=== PATIENT | male | born 1985 | race Caucasian/White ===

== ENCOUNTER 2021-03-17 13:38 | Inpatient (IN) | payer MEDICAID, SELFPAY ==
[2021-03-17] VITALS (8 sets, daily range): BP systolic 115–153; BP diastolic 73–119; PULSE 95–155; RESP 16–34; TEMP 36.6–38.8; O2SAT 90–98; BMI 37.8; BMI 35.3
--- NOTE | 2021-03-17 13:43 | W.ED.AMS ---
HPI - Altered Mental Status General: Chief Complaint: General Medical Stated Complaint: UNRESPONSIVE; HYPERGLYCEMIC Time Seen by Provider: 03/17/21 13:43 History of Present Illness: HPI narrative: Mr. Luna is a 35-year-old gentleman with unclear past medical history though denies history of diabetes who presents emergency department due to altered mental status. Per EMS report he was found sitting in the middle of the street confused. Upon them getting him up to get into the ambulance he became unresponsive. Ateum-fh-ecff glucose was elevated. Upon initial arrival patient is ill-appearing with significantly dry mucous membranes. Initially unresponsive to verbal stimuli however after painful stimuli the patient became more communicative though still appears altered. He reports that he overdid it and perhaps was walking to school he says but the exact circumstances are not clear. He denies traumatic injury. History is otherwise limited by mental status. Review of Systems Narrative: Unable to obtain due to altered mental status and acuity of illness. Physical Exam Narrative: EXAM NARRATIVE: GENERAL/CONSTITUTIONAL -ill appearing. Patient is tachycardic, tachypneic, and requiring supplemental oxygen Eyes - PERRL, no conjunctival injection ENMT - Atraumatic external nose and ears. Dry mucous membranes NECK - supple. trachea midline CARDIOVASCULAR -tachycardic rate and regular rhythm. RESPIRATORY -coarse to auscultation bilaterally. No retractions or accessory muscle use. ABDOMEN/GI -mild generalized tenderness., Nondistended. No tenderness to percussion or evidence of peritonitis MSK - Extremities without obvious deformity or tenderness to palpation SKIN -hot, Dry NEURO - alert and confused. Moves all extremities equally. PSYCH -impaired memory and cognition. Course ED course: - Patient was seen and evaluated by me at bedside - Patient placed on cardiac monitors, IV access obtained - Initial evaluation notable for ill appearance, patient is tachycardic, tachypneic, and requires supplemental oxygen. Blood glucose elevated. Given SIRS criteria and degree of illness empiric antibiotics and IV fluids given. - Labs notable for leukocytosis, thrombocytosis. Metabolic panel notable for hypokalemia, replenishment ordered. Patient is hyperglycemic though bicarb is normal and pH is 7.55. Anion gap suspected to be related to sepsis/dehydration as opposed to DKA. Blood ketones normal. Toxic ingestion labs negative. Initial lactate markedly elevated. - Imaging notable for no acute traumatic injury. Patient does have multifocal pneumonia, reported history 10 days ago of diagnosis of COVID-19. - Upon serial reexamination after treatment the patient was improved with normalization of lactate however the exact etiology of the patient's symptoms is still unclear -Hospitalist service contacted and agreed to admit the patient - Patient was admitted without further deterioration or significant events. Vital Signs: Vital signs: Vital Signs Temperature 98.7 F 03/19/21 08:00 Pulse Rate 80 03/19/21 08:41 Respiratory Rate 17 03/19/21 08:00 Blood Pressure 118/82 03/19/21 08:00 Pulse Oximetry 96 03/19/21 08:41 MDM - Altered Mental Status Lab Data: Labs: Lab Results 03/17/21 03/17/21 03/17/21 Range/Units 13:46 13:50 13:50 WBC 15.1 H (4.0-10.0) 10^3/ uL RBC 5.52 H (4.1-5.3) 10^6/u L Hgb 16.1 (11.7-16.6) g/dL Hct 45.0 (42.0-52.0) % MCV 81.5 (80-94) fl MCH 29.2 (28.0-34.0) pg MCHC 35.8 (30.0-36.0) g/dL RDW 13.0 (12.1-15.1) % Plt Count 800 H (130-400) 10^3/c mm MPV 10.7 H (7.4-10.4) fL Neut % (Auto) 73.6 % Lymph % (Auto) 15.8 % [place] % (Auto) 6.7 % Eos % (Auto) 0.5 % Baso % (Auto) 0.8 % Neut # (Auto) 11.09 H (1.8-7.7) 10^3/u L Lymph # (Auto) 2.4 (0.8-4.8) 10^3/u L [place] # (Auto) 1.0 H (0.2-0.9) 10^3/u L Eos # (Auto) 0.1 (0.0-0.8) 10^3/u L Baso # (Auto) 0.1 (0.0-0.1) 10^3/u L Nucleated RBC % (a uto) 0.3 % Nucleated RBCs # 0.1 /100WBC D-Dimer (0-0.59) ug/mIFE U Specimen Type Sample Site ABG pH (7.35-7.45) ABG pCO2 (35-45) mmHg ABG pO2 (80.0-100.0) mmH g ABG HCO3 (22-26) mmol/L ABG Base Excess (-2.0-2.0) mmol/ L Shailesh Test Hematocrit (42-52) % O2 Delivery Device Residential Real Estate Agent ID Sodium 135 L (136-145) mmol/L Potassium 3.2 L (3.5-5.1) mmol/L Chloride 83 L (98-107) mmol/L Carbon Dioxide 28 (22-29) mmol/L Anion Gap 27.2 H (5-19) BUN 8 (6-20) mg/dL Creatinine 0.9 (0.7-1.2) mg/dL GFR Calculation 95.5 (90-130) mL/min Glucose 565 H* (65-115) mg/dL POC Glucose 556 H* (70-110) mg/dL Estimat Average Gl ucose Hemoglobin A1c (4.0-6.0) % Calculated Osmolal ity 304 H (285-295) mOsm/k g Lactate (0.5-2.2) mmol/L Calcium 8.9 (8.5-10.5) mg/dL Phosphorus 3.0 (2.5-4.5) mg/dL Magnesium 2.0 (1.7-2.3) mg/dL Total Bilirubin 0.8 (0.15-1.2) mg/dL AST 59 H (0-40) U/L ALT 57 H (0-41) U/L Alkaline Phosphata se 88 (40-130) IU/L Creatine Kinase (39-308) U/L C-Reactive Protein 40.7 H (0.0-4.9) mg/L Total Protein 7.2 (6.6-8.7) g/dL Albumin 3.2 L (3.5-5.2) g/dL Globulin 4.0 (1.3-4.6) g/dL Procalcitonin 0.23 (0-0.5) ng/mL TSH 1.03 (0.27-4.20) uIU/ mL Urine Color (Yellow) Urine Appearance (CLEAR) Urine pH (5-7) Ur Specific Gravit y (1.005-1.030) Urine Protein (Negative) Urine Glucose (UA) (Normal) Urine Ketones (Negative) Urine Blood (Negative) Urine Nitrate (Negative) Urine Bilirubin (Negative) Urine Urobilinogen (Negative) mg/dL Ur Leukocyte Fiona ase (Negative) Urine RBC (0-2) /hpf Urine WBC (0-5) /hpf Ur Squamous Epith Cells (0-5) /hpf Amorphous Sediment Urine Bacteria (NONE) /hpf Urine Mucus /hpf Salicylates < 0.3 L (3-10) mg/dL Urine Opiates Scre en (Negative) ng/mL Acetaminophen < 5.0 L (10-30) ug/mL Ur Barbiturates Sc reen (Negative) ng/mL Ur Phencyclidine S crn (Negative) ng/mL Ur Amphetamines Sc reen (Negative) ng/mL U Benzodiazepines Scrn (Negative) ng/mL Urine Cocaine Scre en (Negative) ng/mL U Marijuana (THC) Screen (Negative) ng/mL Ethyl Alcohol < 10 (0-10) mg/dL Serum Ketones (Negative) 03/17/21 03/17/21 03/17/21 Range/Units 13:50 13:50 13:50 WBC (4.0-10.0) 10^3/ uL RBC (4.1-5.3) 10^6/u L Hgb (11.7-16.6) g/dL Hct (42.0-52.0) % MCV (80-94) fl MCH (28.0-34.0) pg MCHC (30.0-36.0) g/dL RDW (12.1-15.1) % Plt Count (130-400) 10^3/c mm MPV (7.4-10.4) fL Neut % (Auto) % Lymph % (Auto) % [place] % (Auto) % Eos % (Auto) % Baso % (Auto) % Neut # (Auto) (1.8-7.7) 10^3/u L Lymph # (Auto) (0.8-4.8) 10^3/u L [place] # (Auto) (0.2-0.9) 10^3/u L Eos # (Auto) (0.0-0.8) 10^3/u L Baso # (Auto) (0.0-0.1) 10^3/u L Nucleated RBC % (a uto) % Nucleated RBCs # /100WBC D-Dimer (0-0.59) ug/mIFE U Specimen Type Sample Site ABG pH (7.35-7.45) ABG pCO2 (35-45) mmHg ABG pO2 (80.0-100.0) mmH g ABG HCO3 (22-26) mmol/L ABG Base Excess (-2.0-2.0) mmol/ L Shailesh Test Hematocrit (42-52) % O2 Delivery Device Residential Real Estate Agent ID Sodium (136-145) mmol/L Potassium (3.5-5.1) mmol/L Chloride (98-107) mmol/L Carbon Dioxide (22-29) mmol/L Anion Gap (5-19) BUN (6-20) mg/dL Creatinine (0.7-1.2) mg/dL GFR Calculation (90-130) mL/min Glucose (65-115) mg/dL POC Glucose (70-110) mg/dL Estimat Average Gl ucose Hemoglobin A1c (4.0-6.0) % Calculated Osmolal ity (285-295) mOsm/k g Lactate 9.8 H* (0.5-2.2) mmol/L Calcium (8.5-10.5) mg/dL Phosphorus (2.5-4.5) mg/dL Magnesium (1.7-2.3) mg/dL Total Bilirubin (0.15-1.2) mg/dL AST (0-40) U/L ALT (0-41) U/L Alkaline Phosphata se (40-130) IU/L Creatine Kinase 108 (39-308) U/L C-Reactive Protein (0.0-4.9) mg/L Total Protein (6.6-8.7) g/dL Albumin (3.5-5.2) g/dL Globulin (1.3-4.6) g/dL Procalcitonin (0-0.5) ng/mL TSH (0.27-4.20) uIU/ mL Urine Color (Yellow) Urine Appearance (CLEAR) Urine pH (5-7) Ur Specific Gravit y (1.005-1.030) Urine Protein (Negative) Urine Glucose (UA) (Normal) Urine Ketones (Negative) Urine Blood (Negative) Urine Nitrate (Negative) Urine Bilirubin (Negative) Urine Urobilinogen (Negative) mg/dL Ur Leukocyte Fiona ase (Negative) Urine RBC (0-2) /hpf Urine WBC (0-5) /hpf Ur Squamous Epith Cells (0-5) /hpf Amorphous Sediment Urine Bacteria (NONE) /hpf Urine Mucus /hpf Salicylates (3-10) mg/dL Urine Opiates Scre en (Negative) ng/mL Acetaminophen (10-30) ug/mL Ur Barbiturates Sc reen (Negative) ng/mL Ur Phencyclidine S crn (Negative) ng/mL Ur Amphetamines Sc reen (Negative) ng/mL U Benzodiazepines Scrn (Negative) ng/mL Urine Cocaine Scre en (Negative) ng/mL U Marijuana (THC) Screen (Negative) ng/mL Ethyl Alcohol (0-10) mg/dL Serum Ketones Negative (Negative) 03/17/21 03/17/21 03/17/21 Range/Units 13:50 13:50 13:55 WBC (4.0-10.0) 10^3/ uL RBC (4.1-5.3) 10^6/u L Hgb (11.7-16.6) g/dL Hct (42.0-52.0) % MCV (80-94) fl MCH (28.0-34.0) pg MCHC (30.0-36.0) g/dL RDW (12.1-15.1) % Plt Count (130-400) 10^3/c mm MPV (7.4-10.4) fL Neut % (Auto) % Lymph % (Auto) % [place] % (Auto) % Eos % (Auto) % Baso % (Auto) % Neut # (Auto) (1.8-7.7) 10^3/u L Lymph # (Auto) (0.8-4.8) 10^3/u L [place] # (Auto) (0.2-0.9) 10^3/u L Eos # (Auto) (0.0-0.8) 10^3/u L Baso # (Auto) (0.0-0.1) 10^3/u L Nucleated RBC % (a uto) % Nucleated RBCs # /100WBC D-Dimer 1.80 H (0-0.59) ug/mIFE U Specimen Type Arterial Sample Site Radial, left ABG pH 7.55 H (7.35-7.45) ABG pCO2 38.5 (35-45) mmHg ABG pO2 123.0 H (80.0-100.0) mmH g ABG HCO3 33.6 H (22-26) mmol/L ABG Base Excess 10.3 H (-2.0-2.0) mmol/ L Shailesh Test Pos Hematocrit 47.5 (42-52) % O2 Delivery Device Nrb Residential Real Estate Agent ID Amh Sodium (136-145) mmol/L Potassium (3.5-5.1) mmol/L Chloride (98-107) mmol/L Carbon Dioxide (22-29) mmol/L Anion Gap (5-19) BUN (6-20) mg/dL Creatinine (0.7-1.2) mg/dL GFR Calculation (90-130) mL/min Glucose (65-115) mg/dL POC Glucose (70-110) mg/dL Estimat Average Gl ucose 252 Hemoglobin A1c 10.4 H (4.0-6.0) % Calculated Osmolal ity (285-295) mOsm/k g Lactate (0.5-2.2) mmol/L Calcium (8.5-10.5) mg/dL Phosphorus (2.5-4.5) mg/dL Magnesium (1.7-2.3) mg/dL Total Bilirubin (0.15-1.2) mg/dL AST (0-40) U/L ALT (0-41) U/L Alkaline Phosphata se (40-130) IU/L Creatine Kinase (39-308) U/L C-Reactive Protein (0.0-4.9) mg/L Total Protein (6.6-8.7) g/dL Albumin (3.5-5.2) g/dL Globulin (1.3-4.6) g/dL Procalcitonin (0-0.5) ng/mL TSH (0.27-4.20) uIU/ mL Urine Color (Yellow) Urine Appearance (CLEAR) Urine pH (5-7) Ur Specific Gravit y (1.005-1.030) Urine Protein (Negative) Urine Glucose (UA) (Normal) Urine Ketones (Negative) Urine Blood (Negative) Urine Nitrate (Negative) Urine Bilirubin (Negative) Urine Urobilinogen (Negative) mg/dL Ur Leukocyte Fiona ase (Negative) Urine RBC (0-2) /hpf Urine WBC (0-5) /hpf Ur Squamous Epith Cells (0-5) /hpf Amorphous Sediment Urine Bacteria (NONE) /hpf Urine Mucus /hpf Salicylates (3-10) mg/dL Urine Opiates Scre en (Negative) ng/mL Acetaminophen (10-30) ug/mL Ur Barbiturates Sc reen (Negative) ng/mL Ur Phencyclidine S crn (Negative) ng/mL Ur Amphetamines Sc reen (Negative) ng/mL U Benzodiazepines Scrn (Negative) ng/mL Urine Cocaine Scre en (Negative) ng/mL U Marijuana (THC) Screen (Negative) ng/mL Ethyl Alcohol (0-10) mg/dL Serum Ketones (Negative) 03/17/21 03/17/21 03/17/21 Range/Units 14:00 14:00 15:05 WBC (4.0-10.0) 10^3/ uL RBC (4.1-5.3) 10^6/u L Hgb (11.7-16.6) g/dL Hct (42.0-52.0) % MCV (80-94) fl MCH (28.0-34.0) pg MCHC (30.0-36.0) g/dL RDW (12.1-15.1) % Plt Count (130-400) 10^3/c mm MPV (7.4-10.4) fL Neut % (Auto) % Lymph % (Auto) % [place] % (Auto) % Eos % (Auto) % Baso % (Auto) % Neut # (Auto) (1.8-7.7) 10^3/u L Lymph # (Auto) (0.8-4.8) 10^3/u L [place] # (Auto) (0.2-0.9) 10^3/u L Eos # (Auto) (0.0-0.8) 10^3/u L Baso # (Auto) (0.0-0.1) 10^3/u L Nucleated RBC % (a uto) % Nucleated RBCs # /100WBC D-Dimer (0-0.59) ug/mIFE U Specimen Type Sample Site ABG pH (7.35-7.45) ABG pCO2 (35-45) mmHg ABG pO2 (80.0-100.0) mmH g ABG HCO3 (22-26) mmol/L ABG Base Excess (-2.0-2.0) mmol/ L Shailesh Test Hematocrit (42-52) % O2 Delivery Device Residential Real Estate Agent ID Sodium (136-145) mmol/L Potassium (3.5-5.1) mmol/L Chloride (98-107) mmol/L Carbon Dioxide (22-29) mmol/L Anion Gap (5-19) BUN (6-20) mg/dL Creatinine (0.7-1.2) mg/dL GFR Calculation (90-130) mL/min Glucose (65-115) mg/dL POC Glucose 451 H (70-110) mg/dL Estimat Average Gl ucose Hemoglobin A1c (4.0-6.0) % Calculated Osmolal ity (285-295) mOsm/k g Lactate (0.5-2.2) mmol/L Calcium (8.5-10.5) mg/dL Phosphorus (2.5-4.5) mg/dL Magnesium (1.7-2.3) mg/dL Total Bilirubin (0.15-1.2) mg/dL AST (0-40) U/L ALT (0-41) U/L Alkaline Phosphata se (40-130) IU/L Creatine Kinase (39-308) U/L C-Reactive Protein (0.0-4.9) mg/L Total Protein (6.6-8.7) g/dL Albumin (3.5-5.2) g/dL Globulin (1.3-4.6) g/dL Procalcitonin (0-0.5) ng/mL TSH (0.27-4.20) uIU/ mL Urine Color Yellow (Yellow) Urine Appearance Sl hazy (CLEAR) Urine pH 5 (5-7) Ur Specific Gravit y 1.010 (1.005-1.030) Urine Protein Trace (Negative) Urine Glucose (UA) 4+ H (Normal) Urine Ketones 1+ H (Negative) Urine Blood Neg (Negative) Urine Nitrate Negative (Negative) Urine Bilirubin Neg (Negative) Urine Urobilinogen 1 H (Negative) mg/dL Ur Leukocyte Fiona ase Negative (Negative) Urine RBC None (0-2) /hpf Urine WBC Rare (0-5) /hpf Ur Squamous Epith Cells Rare (0-5) /hpf Amorphous Sediment Not Reportable Urine Bacteria Trace (NONE) /hpf Urine Mucus 2+ /hpf Salicylates (3-10) mg/dL Urine Opiates Scre en Negative (Negative) ng/mL Acetaminophen (10-30) ug/mL Ur Barbiturates Sc reen Negative (Negative) ng/mL Ur Phencyclidine S crn Negative (Negative) ng/mL Ur Amphetamines Sc reen Negative (Negative) ng/mL U Benzodiazepines Scrn Negative (Negative) ng/mL Urine Cocaine Scre en Negative (Negative) ng/mL U Marijuana (THC) Screen Negative (Negative) ng/mL Ethyl Alcohol (0-10) mg/dL Serum Ketones (Negative) 03/17/21 03/17/21 Range/Units 16:51 16:53 WBC (4.0-10.0) 10^3/ uL RBC (4.1-5.3) 10^6/u L Hgb (11.7-16.6) g/dL Hct (42.0-52.0) % MCV (80-94) fl MCH (28.0-34.0) pg MCHC (30.0-36.0) g/dL RDW (12.1-15.1) % Plt Count (130-400) 10^3/c mm MPV (7.4-10.4) fL Neut % (Auto) % Lymph % (Auto) % [place] % (Auto) % Eos % (Auto) % Baso % (Auto) % Neut # (Auto) (1.8-7.7) 10^3/u L Lymph # (Auto) (0.8-4.8) 10^3/u L [place] # (Auto) (0.2-0.9) 10^3/u L Eos # (Auto) (0.0-0.8) 10^3/u L Baso # (Auto) (0.0-0.1) 10^3/u L Nucleated RBC % (a uto) % Nucleated RBCs # /100WBC D-Dimer (0-0.59) ug/mIFE U Specimen Type Sample Site ABG pH (7.35-7.45) ABG pCO2 (35-45) mmHg ABG pO2 (80.0-100.0) mmH g ABG HCO3 (22-26) mmol/L ABG Base Excess (-2.0-2.0) mmol/ L Shailesh Test Hematocrit (42-52) % O2 Delivery Device Residential Real Estate Agent ID Sodium (136-145) mmol/L Potassium (3.5-5.1) mmol/L Chloride (98-107) mmol/L Carbon Dioxide (22-29) mmol/L Anion Gap (5-19) BUN (6-20) mg/dL Creatinine (0.7-1.2) mg/dL GFR Calculation (90-130) mL/min Glucose (65-115) mg/dL POC Glucose 425 H (70-110) mg/dL Estimat Average Gl ucose Hemoglobin A1c (4.0-6.0) % Calculated Osmolal ity (285-295) mOsm/k g Lactate 1.8 (0.5-2.2) mmol/L Calcium (8.5-10.5) mg/dL Phosphorus (2.5-4.5) mg/dL Magnesium (1.7-2.3) mg/dL Total Bilirubin (0.15-1.2) mg/dL AST (0-40) U/L ALT (0-41) U/L Alkaline Phosphata se (40-130) IU/L Creatine Kinase (39-308) U/L C-Reactive Protein (0.0-4.9) mg/L Total Protein (6.6-8.7) g/dL Albumin (3.5-5.2) g/dL Globulin (1.3-4.6) g/dL Procalcitonin (0-0.5) ng/mL TSH (0.27-4.20) uIU/ mL Urine Color (Yellow) Urine Appearance (CLEAR) Urine pH (5-7) Ur Specific Gravit y (1.005-1.030) Urine Protein (Negative) Urine Glucose (UA) (Normal) Urine Ketones (Negative) Urine Blood (Negative) Urine Nitrate (Negative) Urine Bilirubin (Negative) Urine Urobilinogen (Negative) mg/dL Ur Leukocyte Fiona ase (Negative) Urine RBC (0-2) /hpf Urine WBC (0-5) /hpf Ur Squamous Epith Cells (0-5) /hpf Amorphous Sediment Urine Bacteria (NONE) /hpf Urine Mucus /hpf Salicylates (3-10) mg/dL Urine Opiates Scre en (Negative) ng/mL Acetaminophen (10-30) ug/mL Ur Barbiturates Sc reen (Negative) ng/mL Ur Phencyclidine S crn (Negative) ng/mL Ur Amphetamines Sc reen (Negative) ng/mL U Benzodiazepines Scrn (Negative) ng/mL Urine Cocaine Scre en (Negative) ng/mL U Marijuana (THC) Screen (Negative) ng/mL Ethyl Alcohol (0-10) mg/dL Serum Ketones (Negative) EKG Data^: EKG 1: Attestation: I personally reviewed and interpreted this EKG as follows: EKG interpretation date: 03/17/21 EKG interpretation time: 13:47 Prior EKG tracings: not available for review Interpretation: Twelve-lead EKG shows a regular sinus rhythm at a rate of 152. FL interval 141, QRS duration 83, QTc 523. Interpretation: Sinus tachycardia. Prolonged QTC. EKG 2: Attestation: I personally reviewed and interpreted this EKG as follows: EKG interpretation date: 03/17/21 EKG interpretation time: 15:47 Prior EKG tracings: available for review Interpretation: Twelve-lead EKG shows a regular sinus rhythm at a rate of 113. FL interval 156, QRS duration 97, QTc 504. Interpretation: Sinus tachycardia. Critical Care Time Critical Care Time: Critical Care Time: Yes Total Critical Care Time: 75 Attestation: This case had a high probability of a clinically significant, sudden, or life threatening deterioration of this patient's condition which required my full and direct attention, intervention and personal management. Discharge Plan Discharge Patient Disposition: Admitted As Inpatient Admit Provider: Ernie Mosqueda Coding Level of Care Code ED Biological Technician for Bandar Neal
--- NOTE | 2021-03-17 13:44 | ECG_ITS ---
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 Measurements Intervals [place] Rate: 152 P: 93 SD: 141 QRS: 225 QRSD: 83 T: 32 QT: 328 QTc: 523 Interpretive Statements SINUS TACHYCARDIA, MODERATE ST DEPRESSION [0.05+ mV ST DEPRESSION] No previous ECG available for comparison Electronically Signed On 03-18-2021 13:26:49 CDT by Yudy Franco M.D. [id number]
--- NOTE | 2021-03-17 13:44 | CTR_ITS ---
PROCEDURE INFORMATION: Exam: CT Head Without Contrast Exam date and time: 03/17/2021 1:44 PM Age: 35 years old Clinical indication: Altered mental status/memory loss; Additional info: AMS TECHNIQUE: Imaging protocol: Computed tomography of the head without contrast. Radiation optimization: All CT scans at this facility use at least one of these dose optimization techniques: automated exposure control; mA and/or kV adjustment per patient size (includes targeted exams where dose is matched to clinical indication); or iterative reconstruction. COMPARISON: No relevant prior studies available. RADIATION DOSE METRICS: Total DLP (mGy-cm): 917.45 FINDINGS: Brain: Normal. No hemorrhage. Unremarkable white matter. No mass effect. Cerebral ventricles: No ventriculomegaly. Paranasal sinuses: Visualized sinuses are unremarkable. No fluid levels. Mastoid air cells: Visualized mastoid air cells are well aerated. Bones/joints: Unremarkable. No acute fracture. Soft tissues: Unremarkable. CT/CT head wo con* [id number] IMPRESSION: No acute intracranial abnormality. Radiation Dose CTDIVOL = (mGy): DLP = 917.45 (mGy-cm)
--- NOTE | 2021-03-17 13:44 | XRR_ITS ---
PROCEDURE INFORMATION: Exam: XR Chest Exam date and time: 03/17/2021 1:44 PM Age: 35 years old Clinical indication: Other: AMS TECHNIQUE: Imaging protocol: XR of the chest. Views: 1 view. COMPARISON: No relevant prior studies available. FINDINGS: Lungs: Multifocal patchy bilateral pulmonary infiltrates. Pleural spaces: Unremarkable. No pleural effusion. No pneumothorax. Heart/Mediastinum: Unremarkable. No cardiomegaly. Bones/joints: Unremarkable. XR/XR chest 1V portable [id number] IMPRESSION: Multifocal patchy bilateral pulmonary infiltrates.
[2021-03-17] MEDS: sodium chloride 0.9% 1,000 ML 999 ML IV (13:51)
[2021-03-17 14:06] LABS: ABG PCO2 38.5 mmHg (35-45); ABG PH Result 7.55 (7.35-7.45); Arterial Blood Gas Hematocrit 47.5 % (42-52); Base Excess ABG 10.3 mmol/L (-2.0-2.0); Blood Gas Allen Test Pos; Blood Gas Operator Identificat AMH; Blood Gas Sample Site Radial, left; Blood Gas Sample Type Arterial; HCO3 ABG 33.6 mmol/L (22-26); Oxygen Device NRB
[2021-03-17 14:08] LABS: Basophils # 0.1 10^3/uL (0.0-0.1); Basophils % 0.8 %; Eosinophils # 0.1 10^3/uL (0.0-0.8); Eosinophils % 0.5 %; Hemoglobin 16.1 g/dL (11.7-16.6); Lymphocytes # 2.4 10^3/uL (0.8-4.8); Lymphocytes % 15.8 %; Mean Corpuscular HGB Conc 35.8 g/dL (30.0-36.0); Mean Corpuscular Hemoglobin 29.2 pg (28.0-34.0); Mean Corpuscular Volume 81.5 fl (80-94); Mean Platelet Volume 10.7 fL (7.4-10.4); Monocytes % 6.7 %; Neutrophils # 11.09 10^3/uL (1.8-7.7); Neutrophils % 73.6 %; Nucleated Red Blood Cells # 0.1 /100WBC; Nucleated Red Blood Cells % 0.3 %; Platelet Count 800 10^3/cmm (130-400); Red Blood Count 5.52 10^6/uL (4.1-5.3); White Blood Count 15.1 10^3/uL (4.0-10.0)
--- NOTE | 2021-03-17 14:18 | CTR_ITS ---
PROCEDURE INFORMATION: Exam: CTA Chest With Contrast Exam date and time: 03/17/2021 2:18 PM Age: 35 years old Clinical indication: Other: AMS; Shortness of breath; Additional info: AMS, sirs, unclear source TECHNIQUE: Imaging protocol: Computed tomographic angiography of the chest with contrast. 3D rendering (Not supervised by radiologist): MIP and/or 3D reconstructed images were created by the technologist. Radiation optimization: All CT scans at this facility use at least one of these dose optimization techniques: automated exposure control; mA and/or kV adjustment per patient size (includes targeted exams where dose is matched to clinical indication); or iterative reconstruction. Contrast material: VISI 320; Contrast volume: 95 ml; Contrast route: INTRAVENOUS (IV); COMPARISON: CR (CHEST, ) 03/17/2021 1:58 PM RADIATION DOSE METRICS: Total DLP (mGy-cm): 1605.8 FINDINGS: Pulmonary arteries: Normal. No pulmonary emboli. Aorta: Unremarkable. No aortic aneurysm. No aortic dissection. Lungs: Multifocal patchy bilateral pulmonary infiltrates primarily distributed peripherally. Pleural spaces: Unremarkable. No pneumothorax. No pleural effusion. Heart: Unremarkable. No cardiomegaly. No pericardial effusion. Lymph nodes: Unremarkable. No enlarged lymph nodes. Bones/joints: Unremarkable. No acute fracture. Soft tissues: Unremarkable. IMPRESSION: Bilateral pneumonia as described above.Commonly reported imaging features of COVID-19 pneumonia are present. Other processes such as influenza pneumonia and organizing pneumonia, as can be seen with drug toxicity and connective tissue disease, can cause a similar imaging pattern. (Reference: Atul) REFERENCES: Atul Rockwell, et al., Radiological Society of [place] Expert Consensus Statement on Reporting Chest CT Findings Related to COVID-19. Endorsed by the Society of Thoracic Radiology, the [place] [employer], and RSNA. Published October 19, 2019. PROCEDURE INFORMATION: Exam: CT Abdomen And Pelvis With Contrast Exam date and time: 03/17/2021 2:18 PM Age: 35 years old Clinical indication: Other: AMS; Shortness of breath; Additional info: AMS, sirs, unclear source TECHNIQUE: Imaging protocol: Computed tomography of the abdomen and pelvis with contrast. Radiation optimization: All CT scans at this facility use at least one of these dose optimization techniques: automated exposure control; mA and/or kV adjustment per patient size (includes targeted exams where dose is matched to clinical indication); or iterative reconstruction. Contrast material: VISI 320; Contrast volume: 95 ml; Contrast route: INTRAVENOUS (IV); COMPARISON: CR (CHEST, ) 03/17/2021 1:58 PM RADIATION DOSE METRICS: Total DLP (mGy-cm): 1605.8 FINDINGS: Lungs: Please see the CT scan of the thorax for description of the lung bases. Liver: Normal. No mass. Gallbladder and bile ducts: There are stones in the gallbladder. Pancreas: Normal. No ductal dilation. Spleen: The spleen is enlarged measuring 14.5 cm. Adrenal glands: Normal. No mass. Kidneys and ureters: Normal. No hydronephrosis. Stomach and bowel: Unremarkable. No obstruction. No mucosal thickening. Appendix: No evidence of appendicitis. Intraperitoneal space: Unremarkable. No free air. No significant fluid collection. Vasculature: Unremarkable. No abdominal aortic aneurysm. Lymph nodes: Unremarkable. No enlarged lymph nodes. Urinary bladder: There is a Espinoza catheter in the bladder. Bladder wall is collapsed about the Espinoza catheter and not well evaluated. Reproductive: Unremarkable as visualized. Bones/joints: Unremarkable. No acute fracture. Soft tissues: Unremarkable. CT/CT angio chest w abd pel w con IMPRESSION: 1. Cholelithiasis. 2. Splenomegaly. Radiation Dose CTDIVOL = (mGy): DLP = 1605.8~1605.8 (mGy-cm)
[2021-03-17] MEDS: iodixanol 320 mg/mL 100mL Btl IV (14:29)
[2021-03-17 14:37] LABS: Alanine Aminotransferase 57 U/L (0-41); Albumin Level 3.2 g/dL (3.5-5.2); Alkaline Phosphatase 88 IU/L (40-130); Anion Gap 27.2 (5-19); Aspartate Amino Transferase 59 U/L (0-40); Blood Urea Nitrogen 8 mg/dL (6-20); C Reactive Protein 40.7 mg/L (0.0-4.9); Calcium 8.9 mg/dL (8.5-10.5); Carbon Dioxide 28 mmol/L (22-29); Chloride 83 mmol/L (98-107); Glomerular Filtration Rate 95.5 mL/min (90-130); Osmolality Calculated 304 mOsm/kg (285-295); Potassium 3.2 mmol/L (3.5-5.1); Sodium 135 mmol/L (136-145); Thyroid Stimulating Hormone 1.03 uIU/mL (0.27-4.20); Total Bilirubin 0.8 mg/dL (0.15-1.2); Total Protein 7.2 g/dL (6.6-8.7)
[2021-03-17 14:38] LABS: Ketone (Acetest) Serum Negative (Negative)
[2021-03-17 14:42] LABS: Acetaminophen < 5.0 ug/mL (10-30); Alcohol Level < 10 mg/dL (0-10); Glucose 565 mg/dL (65-115); Lactate (Lactic Acid level) 9.8 mmol/L (0.5-2.2); Salicylate < 0.3 mg/dL (3-10)
--- NOTE | 2021-03-17 14:44 | ECG_ITS ---
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 Measurements Intervals [place] Rate: 113 P: 50 CT: 156 QRS: -14 QRSD: 97 T: 2 QT: 367 QTc: 504 Interpretive Statements SINUS TACHYCARDIA LOW QRS VOLTAGE IN PRECORDIAL LEADS [QRS DEFLECTION < 1.0 mV IN CHEST LEADS] Compared to ECG 03/17/2021 13:45:42 Low QRS voltage now present Atrial abnormality no longer present ST (T wave) deviation no longer present Electronically Signed On 03-18-2021 13:21:43 CDT by Yudy Franco M.D. [id number]
[2021-03-17] MEDS: SODIUM CHLORIDE 0.9% 1776 ML IV (14:46)
[2021-03-17 14:53] LABS: Add Urine Microscopic? YES; Bilirubin Urine Neg (Negative); Blood Urine Neg (Negative); Glucose Urine UA 4+ (Normal); Ketones Urine 1+ (Negative); Leukocyte Esterase Urine Negative (Negative); Nitrate Urine Negative (Negative); Protein Urine Trace (Negative); Urine Appearance SL Hazy (CLEAR); Urine Color Yellow (Yellow); Urobilinogen Urine 1 mg/dL (Negative); pH Urine 5 (5-7)
[2021-03-17] MEDS: piperacillin-tazobactam 4.5 GM in sodium chloride 0.9% (plus) 50 ML IV (14:59)
[2021-03-17 15:02] LABS: Amphetamines Screen Urine Negative (Negative); Barbiturates Screen Urine Negative (Negative); Benzodiazepines Screen Urine Negative (Negative); Cocaine Screen Urine Negative (Negative); Opiate Screen Urine Negative (Negative); PCP Screen Urine Negative (Negative); THC Screen Urine Negative (Negative)
[2021-03-17] MEDS: lidocaine 1% 5 ML in potassium chloride premix 100 ML 25 ML IV (15:02)
[2021-03-17 15:11] LABS: Glucose Point of Care 451 mg/dL (70-110)
[2021-03-17 15:25] LABS: Bacteria Urine TRACE /hpf; Mucus Urine 2+ /hpf; Squamous Epithelial Cell Urine RARE /hpf (0-5); WBC Urine RARE /hpf (0-5)
[2021-03-17 15:26] LABS: Add Urine Culture? No
[2021-03-17 15:31] LABS: Procalcitonin 0.23 ng/mL (0-0.5)
[2021-03-17 15:33] LABS: Creatine Phosphokinase 108 U/L (39-308)
[2021-03-17 16:55] LABS: Glucose Point of Care 425 mg/dL (70-110)
[2021-03-17 16:55] LABS: Glucose Point of Care 556 mg/dL (70-110)
[2021-03-17 17:31] LABS: Lactate (Lactic Acid level) 1.8 mmol/L (0.5-2.2)
--- NOTE | 2021-03-17 18:20 | P.HP_ITS ---
Providers/Chief Complaint Chief Complaint: UNRESPONSIVE; HYPERGLYCEMIC History of Present Illness Roman Luna is a 35 year old male with history of Covid infection presented to the ER with hyperglycemia, altered mental status fevers. Patient was noted to have elevated heart rate 143. Leukocytosis of 15.1 and elevated blood sugar. The patient received IV fluids. He had a CT scan of his chest abdomen pelvis. Concern for pneumonia given broad-spectrum antibiotics. His mental status improved. Currently on 6 L of oxygen. An ABG showed a pH of 7.55 with a HCO3 of 33.6 PCO2 38.5. Also noted to be hypokalemic at 3.2 potassium. Blood sugar was 565. Also noted to have elevated liver enzymes and high inflammatory markers. His urine tox screen was negative. He reports he was diagnosed with Covid about 2 weeks ago. He is a poor historian and is currently oriented to place and person Review of Systems General: Reports: 10 or more systems reviewed and unremarkable except in HPI and below Const: Reports: fever(s) and body aches Eyes: Denies: change in vision ENMT: Denies: throat pain Card: Denies: chest pain or palpitations Resp: Reports: dyspnea GI: Denies: abdominal pain, nausea or vomiting : Denies: flank pain or difficulty urinating Musc: Denies: neck pain or back pain Skin/Breast: Denies: rash or pruritus Neuro: Denies: headache(s) or numbness in extremities Medications/Allergies Home Medications Medication Instructions Recorded Confirmed Last Taken Type Unable to Assess 03/17/21 03/17/21 Unknown History Allergies Allergy/AdvReac Type Severity Reaction Status Date / Time Unable to Assess Allergy Unverified 03/17/21 13:50 Vitals/I&O/Wt Last Vital Signs Temp 98.6 F 03/17/21 15:03 Pulse 120 H 03/17/21 15:03 Resp 34 H 03/17/21 15:03 BP 153/119 03/17/21 15:03 Pulse Ox 94 03/17/21 15:03 03/17/21 03/17/21 03/17/21 06:59 14:59 22:59 Intake Total 1000 / 1000 1826 / 2826 Balance 1000 / 1000 1826 / 2826 Weight last 48 hrs Weight 220 lb Physical Exam Const: ORIENTATION/CONSCIOUSNESS: Yes awake HENMT: COMMON NORMALS: normocephalic and atraumatic Eye: COMMON NORMALS: EOMs intact bilaterally Resp: EFFORT & INSPECTION: Yes tachypneic AUSCULTATION: rhonchi Cardio: RATE: tachycardic GI: COMMON NORMALS: Soft to palpation and non-tender Extremity: COMMON NORMALS: normal to inspection Neuro: COMMON NORMALS: moves all extremities OTHER: Oriented to person and place Urinary Catheter Management^: Espinoza: Cath Placed During This Visit: yes Urinary Catheter Date of Insertion: 03/17/21 Urinary Catheter Time of Insertion: 14:00 Data : 03/17/21 13:50 03/17/21 13:50 Micro: Microbiology 03/17/21 13:50 Blood Culture - Preliminary Blood SPECIMEN COLLECTED CT chest IMPRESSION: Bilateral pneumonia as described above.Commonly reported imaging features of COVID-19 pneumonia are present. Other processes such as influenza pneumonia and organizing pneumonia, as can be seen with drug toxicity and connective tissue disease, can cause a similar imaging pattern. (Reference: Atul) CT abdomen pelvis IMPRESSION: 1. Cholelithiasis. 2. Splenomegaly. CT head IMPRESSION: No acute intracranial abnormality. A&P Assessment and plan (1) Pneumonia: Continue broad-spectrum antibiotics including vancomycin and Zosyn D-dimer is pending. Will order a CTA chest if is elevated Status: Acute (2) Hyperglycemia: Denies previous diagnosis diabetes will monitor fingerstick blood sugars with sliding scale insulin continue IV fluids check A1c Status: Acute (3) Acute delirium: Etiology unclear noted to be hyperglycemic dehydrated with possible infec tion mental status improved Add TSH, random cortisol CT head negative Status: Acute (4) Thrombocytosis: Concern for dehydration check a.m. labs Status: Acute (5) Transaminitis: Will trend consider further work-up including lipid profile and hepatitis panel with iron studies Status: Acute (6) Hypokalemia: Replace and recheck Add magnesium level Status: Acute Attestations Medical Necessity Statement*: Roman Street Jeremy's hospital stay will require greater than 2 midnights for pneumonia Coding Level of Care Code Acute Starting Sheet Tank Operator for g Fwd Exam Detailed Diagnoses Pneumonia J18.9 Hyperglycemia R73.9 Acute delirium R41.0 Thrombocytosis D47.3 Transaminitis R74.01 Hypokalemia E87.6
[2021-03-17 19:18] LABS: Estmated Average Glucose 252; Hemoglobin A1C 10.4 % (4.0-6.0)
[2021-03-17 20:34] LABS: Cortisol Random 21.04 ug/dL (2.47-19.5)
--- NOTE | 2021-03-17 21:17 | PC.NURSE ---
attempted to call report and placed on hold for extended time wihtout anyone answering line. will reattempt to call report
[2021-03-17 22:53] LABS: Glucose Point of Care 391 mg/dL (70-110)
--- NOTE | 2021-03-17 23:11 | PC.PHAR ---
Vancomycin is dosed at 1500mg IVPB every 12 hours to produce a predicted trough level of 13.81 (population based pharmacokinetic analysis). A trough level has been ordered from the lab to be obtained before th fourth dose to confirm and adjust if needed.
[2021-03-17] MEDS: piperacillin-tazobactam 3.375 GM in sodium chloride 0.9% (plus) 50 ML IV (23:47)
[2021-03-17] MEDS: lactated ringers 1,000 ML 100 ML IV (23:50)
[2021-03-17] MEDS: enoxaparin 40 mg/0.4 mL Syringe SUBCUT (23:52)
[2021-03-18] VITALS (8 sets, daily range): BP systolic 95–132; BP diastolic 57–89; PULSE 85–93; RESP 15–19; TEMP 36.6–37.1; O2SAT 92–98
[2021-03-18] MEDS: vancomycin 1,500 MG/300 ML PIGGYBACK 150 MG IV (05:48)
[2021-03-18 06:14] LABS: Glucose Point of Care 234 mg/dL (70-110)
[2021-03-18 08:01] LABS: SARS Covid-2 Antigen Negative (Negative)
[2021-03-18] MEDS: piperacillin-tazobactam 3.375 GM in sodium chloride 0.9% (plus) 50 ML IV (08:01)
[2021-03-18] MEDS: lactated ringers 1,000 ML 100 ML IV ×2 (08:14→18:48)
[2021-03-18 08:17] LABS: Basophils % 0.4 %; Eosinophils # 0.2 10^3/uL (0.0-0.8); Eosinophils % 1.7 %; Hematocrit 38.2 % (42.0-52.0); Hemoglobin 13.2 g/dL (11.7-16.6); Lymphocytes # 2.7 10^3/uL (0.8-4.8); Lymphocytes % 26.1 %; Mean Corpuscular HGB Conc 34.6 g/dL (30.0-36.0); Mean Corpuscular Hemoglobin 29.1 pg (28.0-34.0); Mean Corpuscular Volume 84.3 fl (80-94); Mean Platelet Volume 10.2 fL (7.4-10.4); Monocytes # 0.7 10^3/uL (0.2-0.9); Monocytes % 6.7 %; Neutrophils % 64.1 %; Nucleated Red Blood Cells % 0 %; Platelet Count 419 10^3/cmm (130-400); Red Blood Count 4.53 10^6/uL (4.1-5.3); Red Cell Distribution Width 13.6 % (12.1-15.1); White Blood Count 10.5 10^3/uL (4.0-10.0)
[2021-03-18 08:44] LABS: Alanine Aminotransferase 35 U/L (0-41); Albumin Level 2.6 g/dL (3.5-5.2); Alkaline Phosphatase 58 IU/L (40-130); Anion Gap 11.1 (5-19); Aspartate Amino Transferase 27 U/L (0-40); Blood Urea Nitrogen 5 mg/dL (6-20); Calcium 7.7 mg/dL (8.5-10.5); Carbon Dioxide 36 mmol/L (22-29); Chloride 92 mmol/L (98-107); Globulin 2.9 g/dL (1.3-4.6); Glomerular Filtration Rate 188.1 mL/min (90-130); Glucose 216 mg/dL (65-115); Osmolality Calculated 286 mOsm/kg (285-295); Potassium 3.1 mmol/L (3.5-5.1); Sodium 136 mmol/L (136-145); Total Bilirubin 0.6 mg/dL (0.15-1.2); Total Protein 5.5 g/dL (6.6-8.7)
[2021-03-18] MEDS: insulin glargine 100 units/1 mL 20 UNIT SUBCUT ×2 (11:31→22:32)
[2021-03-18 11:34] LABS: Glucose Point of Care 347 mg/dL (70-110)
--- NOTE | 2021-03-18 15:01 | P.PN_ITS ---
Subjective Subjective: Interval history: Patient examined today, no overnight events, added Lantus 20 units, Covid PCR sent today Discontinued antibiotic Patient was on room air when I examined him Vitals/I&O/Wt Last Vital Signs Temp 98.2 F 03/18/21 11:32 Pulse 89 03/18/21 11:32 Resp 19 H 03/18/21 11:32 BP 95/62 03/18/21 11:32 Pulse Ox 95 03/18/21 11:32 03/18/21 03/18/21 03/18/21 06:59 14:59 22:59 Intake Total 770 / 4096 1535 / 1535 Output Total 500 / 500 Balance 270 / 3596 1535 / 1535 Weight last 48 hrs Weight 93.44 kg Weight 99.79 kg Physical Exam Narrative: EXAM NARRATIVE: Fatigued and lethargic staying in his bed EOMI, PERRLA No neurological deficit Mild cognitive impairment No signs of meningitis S1, S2 Morbid obese Soft abdomen Lower extremity no edema Urinary Catheter Management^: Espinoza: Cath Placed During This Visit: yes Reason for Continuing Indwelling Catheter: Other Urinary Catheter Date of Insertion: 03/17/21 Urinary Catheter Time of Insertion: 14:00 Data : 03/18/21 07:58 03/18/21 07:58 Micro: Microbiology 03/17/21 13:50 Blood Culture - Preliminary Blood NEGATIVE TO DATE A&P Assessment and plan (1) Pneumonia: Status: Acute (2) Hypokalemia: Status: Acute (3) Transaminitis: Status: Acute (4) Thrombocytosis: Status: Acute (5) Acute delirium: Status: Acute (6) Hyperglycemia: Status: Acute (7) Acute respiratory failure with hypoxia: Status: Acute Additional A&P Information Acute hypoxia Rule out COVID-19, sent PCR today CTA chest requested to rule out PE Currently doing well on 3 to nasal cannula Discontinued antibiotics Newly diagnosed type 2 diabetes Hemoglobin A1c 10.4 He will need outpatient work-up to rule out underlying hematological disorder, abnormal transaminases, type 2 diabetes, thrombocytosis, and encephalopathy, hemochromatosis needs to be ruled out Diabetic education Continue LR at 75 mL/h due to hyperglycemia Hypokalemia secondary to use of insulin: Repleted Thrombocytosis with splenomegaly I do believe this was secondary to hemoconcentration which has improved platelet count today 419 will need outpatient follow-up I do believe there is underlying component of Re[place] which needs to be followed up outpatient We will check ammonia level Abnormal transaminases, improved CT abdomen pelvis revealed splenomegaly with cholelithiasis Delirium: Improved TSH normal Likely related to hyperglycemia Full code Consistent carb diet DVT prophylaxis Lovenox Attestations Medical Necessity Statement*: Continue medical management awaiting PCR Covid Time Spent in Patient Care: 16 - 35 minutes Coding Level of Care Code Acute Therapeutic Consultant for Chg Fwd Diagnoses Pneumonia J18.9 Hypokalemia E87.6 Transaminitis R74.01 Thrombocytosis D47.3 Acute delirium R41.0 Hyperglycemia R73.9 Acute respiratory failure with hypoxia J96.01
--- NOTE | 2021-03-18 15:08 | CTR_ITS ---
PROCEDURE INFORMATION: Exam: CTA Chest With Contrast Exam date and time: 03/18/2021 3:08 PM Age: 35 years old Clinical indication: Shortness of breath; Additional info: Hypoxia, high d-dimer TECHNIQUE: Imaging protocol: Computed tomographic angiography of the chest with contrast. 3D rendering (Not supervised by radiologist): MIP and/or 3D reconstructed images were created by the technologist. Radiation optimization: All CT scans at this facility use at least one of these dose optimization techniques: automated exposure control; mA and/or kV adjustment per patient size (includes targeted exams where dose is matched to clinical indication); or iterative reconstruction. Contrast material: OMNI 350; Contrast volume: 67 ml; Contrast route: INTRAVENOUS (IV); COMPARISON: CT angio chest w abd pel w con 03/17/2021 2:26 PM RADIATION DOSE METRICS: Total DLP (mGy-cm): 483.29 FINDINGS: Pulmonary arteries: Normal. No pulmonary emboli. Aorta: Unremarkable. No aortic aneurysm. No aortic dissection. Lungs: Patchy irregular ground-glass lesions widely distributed in both lungs which have increased to a mild degree since the comparison imaging. Pleural spaces: Unremarkable. No pneumothorax. No pleural effusion. Heart: Unremarkable. No cardiomegaly. No pericardial effusion. Lymph nodes: Unremarkable. No enlarged lymph nodes. Bones/joints: Unremarkable. No acute fracture. Soft tissues: Unremarkable. CT/CT angio chest PE protcl [id number] IMPRESSION: 1. Negative for pulmonary embolism. 2. Mild worsening of widespread airspace disease. 3. Commonly reported imaging features of COVID-19 pneumonia are present. Other processes such as influenza pneumonia and organizing pneumonia, as can be seen with drug toxicity and connective tissue disease, can cause a similar imaging pattern. (Reference: Atul) REFERENCES: Atul Rockwell et al., Radiological Society of [place] Expert Consensus Statement on Reporting Chest CT Findings Related to COVID-19. Endorsed by the Society of Thoracic Radiology, the [place] [employer], and RSNA. Published October 19, 2019. Radiation Dose CTDIVOL = (mGy): DLP = 483.29 (mGy-cm)
[2021-03-18 15:56] LABS: Glucose Point of Care 358 mg/dL (70-110)
[2021-03-18 16:05] LABS: Iron 51 ug/dL (59-158); Percent Saturation 23.7 % (20-50); Total Iron Binding Capacity 215 mcg/dl; Unsaturated Iron Binding 164 ug/dL (112-347)
[2021-03-18] MEDS: potassium chloride ER 20 mEq Tablet 40 MEQ PO (16:13)
[2021-03-18 17:26] LABS: Ammonia 25 umol/L (16-60)
[2021-03-18] MEDS: iohexol 350 mg/mL 100 mL Btl IV (18:34)
[2021-03-18] MEDS: enoxaparin 40 mg/0.4 mL Syringe SUBCUT (22:31)
[2021-03-18 22:37] LABS: Glucose Point of Care 288 mg/dL (70-110)
[2021-03-19 04:02] VITALS: BP 124/79; PULSE 89; RESP 15; TEMP 37.2; O2SAT 96
[2021-03-19] MEDS: lactated ringers 1,000 ML 75 ML IV ×2 (04:52→19:57)
--- NOTE | 2021-03-19 05:43 | PC.NURSE ---
Shift Note Frequent safety and comfort rounds continue. Orders and/or nursing care completed as indicated. Patient monitored for response to intervention and treatment(s). Education provided includes importance of checking and monitoring blood sugars and maintaining a healthy diet. Patient verbalized understanding. patient was restless most of the night and was awake watching television. Patient is currently resting comfortably in bed. Will continue to monitor.
[2021-03-19 06:50] LABS: Glucose Point of Care 180 mg/dL (70-110)
[2021-03-19 07:11] LABS: Basophils % 0.4 %; Eosinophils # 0.2 10^3/uL (0.0-0.8); Hematocrit 34.2 % (42.0-52.0); Hemoglobin 11.7 g/dL (11.7-16.6); Lymphocytes # 2.5 10^3/uL (0.8-4.8); Lymphocytes % 33.6 %; Mean Corpuscular HGB Conc 34.2 g/dL (30.0-36.0); Mean Corpuscular Hemoglobin 29.1 pg (28.0-34.0); Mean Corpuscular Volume 85.1 fl (80-94); Mean Platelet Volume 10.1 fL (7.4-10.4); Monocytes # 0.5 10^3/uL (0.2-0.9); Monocytes % 6.3 %; Neutrophils # 4.18 10^3/uL (1.8-7.7); Neutrophils % 56.7 %; Nucleated Red Blood Cells % 0 %; Platelet Count 366 10^3/cmm (130-400); Red Blood Count 4.02 10^6/uL (4.1-5.3); Red Cell Distribution Width 13.4 % (12.1-15.1); White Blood Count 7.4 10^3/uL (4.0-10.0)
[2021-03-19 07:29] LABS: Alanine Aminotransferase 26 U/L (0-41); Albumin Level 2.3 g/dL (3.5-5.2); Alkaline Phosphatase 50 IU/L (40-130); Blood Urea Nitrogen 4 mg/dL (6-20); Calcium 7.8 mg/dL (8.5-10.5); Carbon Dioxide 30 mmol/L (22-29); Chloride 98 mmol/L (98-107); Glomerular Filtration Rate 541.7 mL/min (90-130); Glucose 129 mg/dL (65-115); Osmolality Calculated 285 mOsm/kg (285-295); Sodium 138 mmol/L (136-145); Total Bilirubin 0.4 mg/dL (0.15-1.2); Total Protein 4.3 g/dL (6.6-8.7)
[2021-03-19 07:34] LABS: Anion Gap 13.6 (5-19); Aspartate Amino Transferase 22 U/L (0-40); Potassium 3.6 mmol/L (3.5-5.1)
[2021-03-19 08:00] VITALS: BP 118/82; PULSE 80; RESP 17; TEMP 37.1; O2SAT 94
[2021-03-19 08:41] VITALS: PULSE 80; O2SAT 96
[2021-03-19] MEDS: potassium chloride ER 20 mEq Tablet 40 MEQ PO (09:04)
[2021-03-19 11:49] LABS: Glucose Point of Care 273 mg/dL (70-110)
[2021-03-19 12:00] VITALS: BP 129/69; PULSE 98; RESP 16; TEMP 36.7; O2SAT 99
--- NOTE | 2021-03-19 14:44 | P.PN_ITS ---
Subjective Subjective: Interval history: Patient wanted to go home today however Covid PCR is pending, Vitals/I&O/Wt Last Vital Signs Temp 98.0 F 03/19/21 12:00 Pulse 98 03/19/21 12:00 Resp 16 03/19/21 12:00 BP 129/69 03/19/21 12:00 Pulse Ox 99 03/19/21 12:00 03/18/21 03/19/21 03/19/21 22:59 06:59 14:59 Intake Total 1000 / 2535 1240 / 3775 240 / 240 Output Total 800 / 800 700 / 1500 600 / 600 Balance 200 / 1735 540 / 2275 -360 / -360 Weight last 48 hrs Weight 93.44 kg Physical Exam Narrative: EXAM NARRATIVE: Patient was sitting in his bed watching television S1, S2 Morbidly obese Bilateral breath sounds no adventitious rhonchi or crackles There was strong smell of urine in the room No neurological deficit EOMI, PERRLA Patient does show signs of cognitive impairment Urinary Catheter Management^: Espinoza: Cath Placed During This Visit: yes, but has since been removed by the nurse Reason for Continuing Indwelling Catheter: Not indwelling catheter Urinary Catheter Date of Insertion: 03/17/21 Urinary Catheter Time of Insertion: 14:00 Date Urinary Catheter Removed: 03/18/21 Time Urinary Catheter Discontinued: 16:22 Data : 03/19/21 06:57 03/19/21 06:57 Micro: Microbiology 03/17/21 13:50 Blood Culture - Preliminary Blood NEGATIVE TO DATE A&P Assessment and plan (1) Acute respiratory failure with hypoxia: Status: Acute (2) Hypokalemia: Status: Acute (3) Transaminitis: Status: Acute (4) Thrombocytosis: Status: Acute (5) Acute delirium: Status: Acute (6) Hyperglycemia: Status: Acute (7) Pneumonia: Status: Acute Additional A&P Information Acute hypoxia Rule out COVID-19 pneumonia This morning I turned off his oxygen to see if he would maintain his O2 saturation, no decline seen during my evaluation continue to monitor if he would require nasal cannula CTA ruled out PE Hypokalemia: Repleted Newly diagnosed type 2 diabetes Patient is on moderate sliding scale with Lantus 20 units daily, I would increase Lantus dose to 25 units I would continue his fluid because of consistent hyperglycemia I would use high-dose sliding scale Thrombocytosis most likely secondary to dehydration improved after fluid resuscitation Transaminitis improved Considering type 2 diabetes and splenomegaly would recommend outpatient hematology follow-up Encephalopathy: Resolved however I do suspect underlying cognitive impairment Ammonia level normal Consistent carb diet Full code DVT prophylaxis Lovenox Attestations Medical Necessity Statement*: Continue care Covid PCR to be ruled out will need home O2 evaluation before discharge, community educator Time Spent in Patient Care: less than 15 minutes Coding Level of Care Code Acute Public Health Assistant for Chg Fwd Diagnoses Acute respiratory failure with hypoxia J96.01 Hypokalemia E87.6 Transaminitis R74.01 Thrombocytosis D47.3 Acute delirium R41.0 Hyperglycemia R73.9 Pneumonia J18.9
[2021-03-19 16:00] VITALS: BP 125/89; PULSE 80; RESP 17; TEMP 36.9; O2SAT 92
[2021-03-19 16:32] LABS: Osmolality Serum 309 mOsm/kg (278-305)
[2021-03-19 18:10] LABS: Glucose Point of Care 274 mg/dL (70-110)
[2021-03-19 20:00] VITALS: BP 137/92; PULSE 92; RESP 20; TEMP 37.2; O2SAT 89
[2021-03-19 21:57] LABS: Glucose Point of Care 267 mg/dL (70-110)
[2021-03-19] MEDS: insulin glargine 100 units/1 mL 25 UNIT SUBCUT (21:58)
[2021-03-19] MEDS: enoxaparin 40 mg/0.4 mL Syringe SUBCUT (21:58)
[2021-03-20] VITALS (8 sets, daily range): BP systolic 119–136; BP diastolic 80–91; PULSE 80–95; RESP 16–19; TEMP 36.5–37.3; O2SAT 90–94
[2021-03-20 03:25] LABS: Basophils # 0.1 10^3/uL (0.0-0.1); Basophils % 0.7 %; Eosinophils # 0.2 10^3/uL (0.0-0.8); Eosinophils % 2.1 %; Hematocrit 41.5 % (42.0-52.0); Hemoglobin 13.9 g/dL (11.7-16.6); Lymphocytes % 35.1 %; Mean Corpuscular HGB Conc 33.5 g/dL (30.0-36.0); Mean Corpuscular Hemoglobin 28.5 pg (28.0-34.0); Mean Corpuscular Volume 85.2 fl (80-94); Mean Platelet Volume 10.2 fL (7.4-10.4); Monocytes # 0.6 10^3/uL (0.2-0.9); Monocytes % 7.4 %; Neutrophils # 4.56 10^3/uL (1.8-7.7); Nucleated Red Blood Cells % 0 %; Platelet Count 463 10^3/cmm (130-400); Red Blood Count 4.87 10^6/uL (4.1-5.3); Red Cell Distribution Width 13.5 % (12.1-15.1); White Blood Count 8.6 10^3/uL (4.0-10.0)
[2021-03-20 03:48] LABS: Alanine Aminotransferase 33 U/L (0-41); Albumin Level 2.8 g/dL (3.5-5.2); Alkaline Phosphatase 65 IU/L (40-130); Anion Gap 14.4 (5-19); Aspartate Amino Transferase 25 U/L (0-40); Blood Urea Nitrogen 5 mg/dL (6-20); C Reactive Protein 29.3 mg/L (0.0-4.9); Calcium 8.3 mg/dL (8.5-10.5); Carbon Dioxide 33 mmol/L (22-29); Chloride 100 mmol/L (98-107); Globulin 3.5 g/dL (1.3-4.6); Glomerular Filtration Rate 339.2 mL/min (90-130); Glucose 101 mg/dL (65-115); Lactate Dehydrogenase 319 U/L (135-225); Osmolality Calculated 295 mOsm/kg (285-295); Potassium 3.4 mmol/L (3.5-5.1); Sodium 144 mmol/L (136-145); Total Bilirubin 0.3 mg/dL (0.15-1.2); Total Protein 6.3 g/dL (6.6-8.7)
[2021-03-20 08:54] LABS: Glucose Point of Care 141 mg/dL (70-110)
[2021-03-20] MEDS: lactated ringers 1,000 ML 75 ML IV (09:00)
[2021-03-20] MEDS: potassium chloride ER 20 mEq Tablet 40 MEQ PO ×2 (09:01→15:13)
--- NOTE | 2021-03-20 10:48 | PC.NUTR ---
Nutrition consult for newly diagnosed DM. Attempted to obtain food history but Pt provided limited information. Provided a handout and brief explanation. Pt asked a few appropriate questions. See full RD assessment for further details.
[2021-03-20 11:49] LABS: Glucose Point of Care 202 mg/dL (70-110)
--- NOTE | 2021-03-20 14:30 | PM.PN ---
Subjective Subjective: Interval history: Patient was seen and examined this morning, he was saturating well on room air Dietitian was discussing different options that he can well with his diabetes Patient was able to use his phone and show me her aunts picture via [employer], today we discovered that she works in the hospital and her phone number is [phone] Gely Eastman Vitals/I&O/Wt Last Vital Signs Temp 97.8 F 03/20/21 12:00 Pulse 88 03/20/21 13:48 Resp 19 H 03/20/21 12:00 BP 123/84 03/20/21 12:00 Pulse Ox 92 03/20/21 13:48 03/19/21 03/20/21 03/20/21 22:59 06:59 14:59 Intake Total 1000 / 1240 360 / 1600 978.75 / 978.75 Output Total 600 / 1200 680 / 1880 Balance 400 / 40 -320 / -280 978.75 / 978.75 Physical Exam Narrative: EXAM NARRATIVE: Patient was sitting in his bed watching television Saturating well on room air No active complaint EOMI, PERRLA S1, S2 Lower symmetry no swelling Bilateral breath sound without adventitious rhonchi or crackles Does have mild cognitive/intellectual disability Soft abdomen Urinary Catheter Management^: Espinoza: Cath Placed During This Visit: yes, but has since been removed by the nurse Reason for Continuing Indwelling Catheter: Not indwelling catheter Urinary Catheter Date of Insertion: 03/17/21 Urinary Catheter Time of Insertion: 14:00 Date Urinary Catheter Removed: 03/18/21 Time Urinary Catheter Discontinued: 16:22 Data : 03/20/21 02:34 03/20/21 02:34 A&P Assessment and plan (1) Acute respiratory failure with hypoxia: Status: Acute (2) Hypokalemia: Status: Acute (3) Transaminitis: Status: Acute (4) Thrombocytosis: Status: Acute (5) Acute delirium: Status: Acute (6) Hyperglycemia: Status: Acute (7) Pneumonia: Status: Acute Additional A&P Information Hypoxic respiratory failure: Patient is not requiring any oxygen It was probably secondary to hypoventilation: Might need home O2 evaluation before discharge Hypokalemia: Potassium repleted Thrombocytosis: It improved yesterday however today 463 his fluids were discontinued, No active hyperviscosity signs, no active indication for hydroxyurea or aspirin Considering splenomegaly and new onset diabetes will need hematology follow-up outpatient Consistent carb diet We will increase his Lantus he has persistent hyperglycemia, will add premeal insulin with sliding Will need outpatient ophthalmology retinal exam Annual podiatry examination Covid PCR pending not requiring oxygen at this point Full code Attestations Medical Necessity Statement*: Will discharge once we see the results of pending Covid PCR Time Spent in Patient Care: 16 - 35 minutes Coding Level of Care Code Acute Diplomatic Interpreter/Translator for Bandar Fwlaura Diagnoses Acute respiratory failure with hypoxia J96.01 Hypokalemia E87.6 Transaminitis R74.01 Thrombocytosis D47.3 Acute delirium R41.0 Hyperglycemia R73.9 Pneumonia J18.9
[2021-03-20 15:54] LABS: Coronavirus Test Green County Detected
[2021-03-20 17:38] LABS: Glucose Point of Care 209 mg/dL (70-110)
[2021-03-20] MEDS: insulin glargine 100 units/1 mL 15 UNIT SUBCUT (18:36)
[2021-03-20 21:19] LABS: Glucose Point of Care 263 mg/dL (70-110)
[2021-03-20] MEDS: enoxaparin 40 mg/0.4 mL Syringe SUBCUT (22:51)
[2021-03-21] MEDS: lactated ringers 1,000 ML 75 ML IV (00:56)
[2021-03-21 04:00] VITALS: BP 132/92; PULSE 86; RESP 16; TEMP 36.9; O2SAT 90
[2021-03-21 04:33] LABS: Anion Gap 13.5 (5-19); Blood Urea Nitrogen 5 mg/dL (6-20); Calcium 9.2 mg/dL (8.5-10.5); Carbon Dioxide 28 mmol/L (22-29); Chloride 104 mmol/L (98-107); Glomerular Filtration Rate 243.4 mL/min (90-130); Glucose 103 mg/dL (65-115); Osmolality Calculated 290 mOsm/kg (285-295); Potassium 4.5 mmol/L (3.5-5.1); Sodium 141 mmol/L (136-145)
[2021-03-21 05:08] VITALS: PULSE 91; O2SAT 93
[2021-03-21 06:44] LABS: Glucose Point of Care 117 mg/dL (70-110)
[2021-03-21 07:42] VITALS: BP 117/84; PULSE 78; RESP 18; TEMP 36.4; O2SAT 92
[2021-03-21] MEDS: insulin glargine 100 units/1 mL 15 UNIT SUBCUT (09:18)
[2021-03-21] MEDS: potassium chloride ER 20 mEq Tablet 40 MEQ PO (09:19)
--- NOTE | 2021-03-21 11:26 | PC.CHAP ---
Pastoral Care Encounter/Spiritual Assessment Type of Contact [] Declined director [place] visit [] Patient/Family/Request visit [] Outpatient visit [] Follow-up visit [] Physician referral [] Code/Alert [] Routine visit [] Staff referral [] Actively dying [] Patient sleeping [] Family support [] [] Out of room [] Palliative care [] [] Receiving care in room [] Pre-surgical visit [] Trauma [] Long length of stay [] ICU visit [x] Other: Isolation Relational/Emotional Strength [] Patient feels connected with others/family/visitors/staff [] Distress [] Loneliness/isolation [] Abandonment Spirituality of Patient [] Person of Jaycee [] Attends Rastafari of their Jaycee [] Believes in Prayer [] Reads Bible or Voodoo materials [] There are Spiritual issues to be addressed First Breaker Feeder Interventions [] Prayer [] Active listening [] Non-anxious presence [] Spiritual/emotional support [] Crisis/trauma care [] Spiritual counseling [] Bereavement support [] Provided bereavement packet [] Provided Bible/devotional materials [] Provided toy/stuffed animal, coloring book to patient or family member [] Provided Communion [] Anointing/[place] [] Salvation [] Completed spiritual assessment [] Other: Impact on Illness or Injury [] Angry [] Fearful [] Anxious [] Often cries [] Exhaustion [] Unable to work [] Unable to attend congregational [] Unable to walk/stand [] Unable to read [] Unable to drive [] Unable to eat/drink [] Unable to sleep [] Unable to be with family [] Patient intubated [] Other: Summary Isolation Time spent with patient 5 mins
[2021-03-21 11:33] VITALS: BP 126/87; PULSE 83; RESP 18; TEMP 36.4; O2SAT 93
--- NOTE | 2021-03-21 11:44 | PM.DCS ---
Discharge Providers Date of Admission: 03/17/21 17:40 Date of Discharge: March 21, 2021 Attending Provider at Admission: Ernie Mosqueda MD Attending Provider at Discharge: Ena Rivera MD Diagnoses at Discharge Discharge Diagnosis (1) Acute respiratory failure with hypoxia: Status: Acute (2) Hypokalemia: Status: Acute (3) Transaminitis: Status: Acute (4) Thrombocytosis: Status: Acute (5) Acute delirium: Status: Acute (6) Hyperglycemia: Status: Acute (7) Pneumonia: Status: Acute Reason for Visit Reason for Visit: UNRESPONSIVE; HYPERGLYCEMIC Hospital Course Hospital Course HPI done by Dr. Mosqueda Roman Luna is a 35 year old male with history of Covid infection presented to the ER with hyperglycemia, altered mental status fevers. Patient was noted to have elevated heart rate 143. Leukocytosis of 15.1 and elevated blood sugar. The patient received IV fluids. He had a CT scan of his chest abdomen pelvis. Concern for pneumonia given broad-spectrum antibiotics. His mental status improved. Currently on 6 L of oxygen. An ABG showed a pH of 7.55 with a HCO3 of 33.6 PCO2 38.5. Also noted to be hypokalemic at 3.2 potassium. Blood sugar was 565. Also noted to have elevated liver enzymes and high inflammatory markers. His urine tox screen was negative. Hospital course He was admitted for management of hyperglycemia, newly diagnosed type 2 diabetes newly diagnosed type 2 diabetes, his mentation improved after fluid resuscitation however at baseline he does show some kind of intellectual/cognitive disability. He was started on broad-spectrum antibiotics empirically, as his chest x-ray was showing groundglass opacities, Covid antigen was negative however PCR was requested next day, which came back positive, he did not require oxygen at all during his hospitalization or at the time of discharge. CTA ruled out PE. Of note, he does show thrombocytosis on his CBC however it improved with fluid resuscitation. He also presented with abnormal transaminases, they improved as well. Abdominal imaging did reveal cholelithiasis, splenomegaly. He might benefit from a hematology consult outpatient. Iron 51 total iron binding capacity 215, saturation 23%, hemochromatosis is ruled out with these iron studies however I am not sure what is causing splenomegaly at this point. His hemoglobin is 13.9 MCV 85 platelet count on discharge 463. 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 HGlobin A1c 10.4 Physical Exam Narrative: EXAM NARRATIVE: Patient was sitting in his bed watching television Saturating well on room air No active complaint EOMI, PERRLA S1, S2 Lower symmetry no swelling Bilateral breath sound without adventitious rhonchi or crackles Does have mild cognitive/intellectual disability Soft abdomen Urinary Catheter Management^: Espinoza: Cath Placed During This Visit: yes, but has since been removed by the nurse Reason for Continuing Indwelling Catheter: Not indwelling catheter Urinary Catheter Date of Insertion: 03/17/21 Urinary Catheter Time of Insertion: 14:00 Date Urinary Catheter Removed: 03/18/21 Time Urinary Catheter Discontinued: 16:22 Discharge Data Data Completed and Pending: Completed Studies During Hospitalization Category Date Time Status CT angio chest PE protcl 34012 Rout ine Cat Scan 03/18/21 15:[address] angio chest w abd pel w con Urge nt Cat Scan 03/17/21 14:[address] head wo con* 7 0450 Urgent Cat Scan 03/17/21 13:44 Completed XR chest 1V smiley ble 72769 Urgent Exams 03/17/21 13:44 Completed Pending at discharge Category Date Time Status Blood Culture Sta t Lab 03/17/21 13:45 Results Labs from last 24 hours 03/21/21 03/21/21 03/20/21 06:40 03:20 21:13 Sodium 141 Potassium 4.5 Chloride 104 Carbon Dioxide 28 Anion Gap 13.5 BUN 5 L Creatinine 0.4 L GFR Calculation 243.4 H Glucose 103 POC Glucose 117 H 263 H Calculated Osmolal ity 290 Calcium 9.2 Nasal/Oral COVID-1 9 PCR 03/20/21 03/20/21 03/18/21 17:35 11:44 11:33 Sodium Potassium Chloride Carbon Dioxide Anion Gap BUN Creatinine GFR Calculation Glucose POC Glucose 209 H 202 H Calculated Osmolal ity Calcium Nasal/Oral COVID-1 9 PCR Detected H Vitals: Last Vital Signs Temp 97.6 F 03/21/21 11:33 Pulse 83 03/21/21 11:33 Resp 18 03/21/21 11:33 BP 126/87 03/21/21 11:33 Pulse Ox 93 03/21/21 11:33 Discharge Plan Discharge Patient Disposition: Home Condition: Stable Prescriptions: New metformin 1,000 mg tablet 1,000 mg PO DAILY Qty: 30 RF: 3 Lantus Solostar U-100 Insulin 100 unit/mL (3 mL) insulin pen 20 unit SUBCUT BEDTIME Qty: 15 RF: 3 (DME) Accu-Chek Guide Glucose Meter Misc See Rx Instructions .Route Qty: 1 RF: 0 (DME) Lancets,Ultra Thin Misc See Rx Instructions .Route Qty: 100 RF: 3 (DME) Accu-Chek Guide test strips Strip See Rx Instructions .Route Qty: 100 RF: 3 Lantus Solostar U-100 Insulin 100 unit/mL (3 mL) insulin pen 20 unit SUBCUT BEDTIME Qty: 15 RF: 2 Discontinued ibuprofen 200 mg Tablet 200 mg PO Q6H PRN (Reason: Fever Or Pain) RF: 0 Discharge Orders: Discharge Order (Routine); Ordered 03/21/21 Ordered By: Ena Rivera Referrals: Ric Hoffman MD [Referring] - 03/25/21 12:30 pm (You have an appointment to establish Dr Hoffman on Mar 25, 2021 at 12:30pm. Please take discharge paperwork, along with any medications to this appointment. For financial assistance, please call office at [phone] to see if you qualify. ) Ric Rincon MD [Physician] - 1 month (Newly diagnosed type 2 diabetes) Truman Hanna MD [Physician] - 1-3 days (Newly diagnosed diabetes Covid positive) Discharge Diet: Diabetic Discharge Activity: Increase activity as tolerated Patient Instructions: Opioid Safety Activity Restrictions/Additional Instructions: Please take long-acting and please take Lantus 20 units at bedtime Check your blood sugar before every meal and before going to bed and maintain a log and show to your doctor that you are going to see on 03/25 at 12:30 PM You will be given a glucometer insulin injection, lancets which will be sent to [facility] pharmacy You do have COVID-19 infection but not requiring oxygen you will benefit from monoclonal antibody infusion please see chalk machine operator as soon as possible Premeal blood sugar should be between 80 to 130 mg/dL 2 hours after meals should be less than 180 mg/dL If fasting blood sugar in the morning before breakfast is staying above 130 mg/dL you can increase Lantus by 2 units and check your sugar for next 3 days to see if your able to achieve target blood sugar between 80 to 130 mg/dL, keep adding 2 units of Lantus after every 3 days until you achieve desired goal of blood sugar. . Discharge Attestations Time Spent in Discharge Care*: less than 30 min Quality Metrics Clinical Quality Measures During this hospital stay, did patient experience: None Coding Level of Care Code Acute g DC note Diagnoses Acute respiratory failure with hypoxia J96.01 Hypokalemia E87.6 Transaminitis R74.01 Thrombocytosis D47.3 Acute delirium R41.0 Hyperglycemia R73.9 Pneumonia J18.9
[2021-03-21 12:23] LABS: Glucose Point of Care 197 mg/dL (70-110)
[2021-03-21 12:44] LABS: Ferritin 641 ng/mL (30-400)
--- NOTE | 2021-03-21 16:16 | PC.NURSE ---
Discharge Note Patient discharged to home via uber accompanied by nobody. 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 Mobile pharmacy medications and/or prescriptions provided. Extensive education taught to the patient about where and how to use insulin and his new glucometer. Patient returned demonstration of insulin use. Belongings/home medications returned.
[2021-03-21 16:20] VITALS: BP 126/87; PULSE 83; RESP 18; TEMP 36.4; O2SAT 93
[2021-03-21 16:24] VITALS: PULSE 80; O2SAT 92
== END 2021-03-21 16:00 | disposition home or self-care (01) | DRG 177 ==
LOC: ER 15:53 → MS 2A 18:43 → MEDSURG 22:20
PROVIDERS: Admitting Provider Internal Medicine; Emergency Provider Emergency Medicine; Visit Provider Internal Medicine
DX: U07.1 COVID-19 (principal); J12.82 Pneumonia due to coronavirus disease 2019; J96.01 Acute respiratory failure with hypoxia; E11.9 Type 2 diabetes mellitus without complications; E87.6 Hypokalemia; E86.0 Dehydration; R41.0 Disorientation, unspecified; D47.3 Essential (hemorrhagic) thrombocythemia; E66.01 Morbid (severe) obesity due to excess calories; Z68.35 Body mass index [BMI] 35.0-35.9, adult; F79 Unspecified intellectual disabilities; K80.20 Calculus of gallbladder without cholecystitis without obstruction; R16.1 Splenomegaly, not elsewhere classified
CPT/HCPCS: 36415; 36416; 36600; 51702; 70450; 71045; 71275; 74177; 80048; 80053; 80306; 80307; 81001; 82009; 82140; 82533; 82550; 82728; 82803; 82962; 83036; 83540; 83550; 83605; 83615; 83735; 83930; 84100; 84145; 84443; 85025; 85378; 86140; 87040; 87426; 87635; 93005; 96365; 96366; 96367; 96372; 97161; 99285; J1650; J1815 ×2; J2543; J3370; J3480; J7030; J7040; Q9967